=== PATIENT | female | born 2000 | race Two or more races ===

== ENCOUNTER 2021-05-08 12:18 | Emergency (ER) | payer OTHER ==
[~2021-05-08] VITALS: Ht 162.6 cm; Wt 83.3 kg
[2021-05-08] MEDS ORDERED: LIDOCAINE 1% Multi-Dose 20 ML VIAL. IJ ONE (12:45)
[2021-05-08] MEDS ORDERED: DIPHTH,PERTUSS(ACELL),TET TOX 0.5 ML DISP.SYRIN. VAX IM ONE (13:00)
[2021-05-08] MEDS ORDERED: CEPH500C PO (13:14)
--- NOTE | 2021-05-08 13:14 | PHYS DOC ---
Past History Past Surgical History: Cholecystectomy Alcohol Use: None General Adult EDM: Chief Complaint: LACERATION/AVULSION HPI: HPI: Patient is a 20-year-old female who presents to the emergency department for a laceration to her left index finger that occurred when she was cutting navarro with a knife. She rates her pain 5 out of 10. She denies any decreased range of motion or decreased sensation in her finger. She is unsure when her last tetanus shot was. Review of Systems: Review of Systems: Musculoskeletal: See HPI Integument: See HPI Neurologic: See HPI Current Medications: Current Meds: Current Medications Medications (Trade) Dose Ordered Sig/Miguelito Start Time Stop Time Status Last Admin Dose Admin Diphtheria/ Tetanus/Acell Pertussis (Boostrix) 0.5 ml ONCE ONCE 05/08/21 13:00 05/08/21 13:01 DC Lidocaine HCl 20 ml 1X ONCE 05/08/21 12:45 05/08/21 13:01 DC 05/08/21 12:45 20 ML Allergies: Allergies: Allergies Coded Allergies Type Severity Reaction Last Updated Verified No Known Drug Allergies 05/08/21 No Physical Exam: PE: Constitutional: Well developed, well nourished, no acute distress, non-toxic appearance. [] HENT: Normocephalic, atraumatic, bilateral external ears normal, oropharynx m oist, no oral exudates, nose normal. [] Eyes: PERRL, EOMI, conjunctiva normal, no discharge. [] Neck: Normal range of motion, no stridor Cardiovascular: Normal peripheral perfusion Lungs & Thorax: Normal work of breathing, no tachypnea Abdomen: Soft and flat Skin: Warm, dry, no erythema, no rash. [] Abrasion noted to dorsal aspect of left thumb, 1.5 cm laceration noted to the tip of patient's left second fingerno active bleeding, no tendon involvement, wound is well approximated, range of motion intact, neuro intact, no visible foreign bodies Back: No tenderness, normal range of motion Extremities: No tenderness, no cyanosis, no clubbing, ROM intact, no edema. [] Neurologic: Alert and oriented X 3, normal motor function, normal sensory function, no focal deficits noted. [] Psychologic: Affect normal, judgement normal, mood normal. [] Current Patient Data: Vital Signs: Vital Signs Date Time Temp Pulse Resp B/P (MAP) Pulse Ox O2 Delivery O2 Flow Rate FiO2 05/08/21 12:20 98.4 93 18 140/92 (108) 96 Room Air EKG: EKG: [] Radiology/Procedures: Radiology/Procedures: [] Heart Score: C/O Chest Pain: N/A Risk Factors: Risk Factors: DM, Current or recent (<one month) smoker, HTN, HLP, family history of CAD, obesity. Risk Scores: Score 0 - 3: 2.5% MACE over next 6 weeks - Discharge Home Score 4 - 6: 20.3% MACE over next 6 weeks - Admit for Clinical Observation Score 7 - 10: 72.7% MACE over next 6 weeks - Early Invasive Strategies Course & Med Decision Making: Course & Med Decision Making Pertinent Labs and Imaging studies reviewed. (See chart for details) [] Patient presents to the emergency department today for a laceration to her left index finger. The wound was well approximated, no foreign body involvement, neurovascularly intact, range of motion intact, no tendon involvement. Laceration was cleansed in the emergency department and was repaired with skin glue and Steri-Strips. Tetanus was updated. Patient educated on wound care. Patient discharged home with antibiotic. I discussed with patient all findings and diagnostic testing as well as the need to follow-up with PCP for further evaluation and treatment or return to the ER if any new or worsening symptoms. Strict return precautions were also discussed at length. Patient voiced understanding and agreement with the plan. Patient is hemodynamically stable at the time of disposition. Dragon Disclaimer: Ilana Disclaimer: This electronic medical record was generated, in whole or in part, using a voice recognition dictation system. Departure Departure: Impression: Primary Impression: Laceration Disposition: 01 HOME / SELF CARE / HOMELESS Condition: GOOD Referrals: MICHELLE SHAHID (PCP) Patient Instructions: Fingertip Laceration Additional Instructions: You were seen in the emergency department today for a laceration to your finger which was repaired with skin glue and Steri-Strips.please do not pick at the skin glue or the Steri-Strips, they will fall off when the wound is healed. Do not submerge your hand in any water. Please keep your lacerations clean and dry. Monitor for any signs of infection which include redness, warmth, swelling or drainage. He can take Tylenol and ibuprofen for pain at home. You are being discharged home with an antibiotic to prevent infection. Please start and finish it completely. Follow-up with your primary care provider in 2 days for wound recheck. Return to the emergency department if you develop any signs of infection, increased pain, decreased sensation or decreased range of motion to your finger. Scripts Cephalexin (KEFLEX) 500 Mg Capsule 1 CAP PO QID for infection for 7 Days, #28 CAP 0 Refills Prov: HERBERT FALCON APRN 05/08/21 HERBERT FALCON APRN May 08, 2021 13:14
[2021-05-08 13:24] VITALS: BP 130/80
== END 2021-05-08 13:28 | disposition home or self-care (01) ==
LOC: ER 12:18
DX: S61.211A Laceration without foreign body of left index finger without damage to nail, initial encounter (principal); W26.0XXA Contact with knife, initial encounter; Y93.89 Activity, other specified; Y92.89 Other specified places as the place of occurrence of the external cause; Y99.8 Other external cause status
CPT/HCPCS: 12001; 29130; 90471; 90715; 99283